=== PATIENT | female | born 1970 | race Two or more races ===

== ENCOUNTER → 2020-08-31 | Outpatient (CLI) | payer OTHER | END | disposition home or self-care (01) | LOC: SONOGRAMA 13:56 | PROVIDERS: ATTEND Surgery | DX: C50.812 Malignant neoplasm of overlapping sites of left female breast (principal); N60.11 Diffuse cystic mastopathy of right breast; N60.12 Diffuse cystic mastopathy of left breast; N63.42 Unspecified lump in left breast, subareolar ==

== ENCOUNTER 2020-10-16 06:41 | Day surgery (SDC) | payer OTHER | END 2020-10-16 18:45 | disposition home or self-care (01) | LOC: CIR.AMB 06:41 | PROVIDERS: ATTEND Surgery | DX: D05.12 Intraductal carcinoma in situ of left breast (principal); Z20.822 Contact with and (suspected) exposure to COVID-19 ==